=== PATIENT | female | born 1990 | race Caucasian/White ===

== ENCOUNTER 2021-03-03 03:40 | Emergency (ER) | payer OTHER ==
[2021-03-03] MEDS ORDERED: ACYCLOVIR800 MG PO (04:45)
[2021-03-03] MEDS ORDERED: VIBRAMYCIN100 MG PO (04:45)
[2021-03-03] MEDS ORDERED: VIBRAMYCIN 100100 MG GT (04:50)
[2021-03-03] MEDS ORDERED: VISCOUS LIDOCAINE TOP (04:50)
[2021-03-03] MEDS ORDERED: FAMCICLOVIR500 MG PO (04:50)
== END 2021-03-03 05:27 | disposition home or self-care (01) ==
LOC: ER1 03:40
DX: N76.6 Ulceration of vulva (principal); J45.909 Unspecified asthma, uncomplicated; F17.210 Nicotine dependence, cigarettes, uncomplicated
CPT/HCPCS: 96372; 99283; J0561